=== PATIENT | female | born 1960 | race Caucasian/White ===

== ENCOUNTER 2023-04-29 06:56 | Outpatient (CLI) | payer MEDICARE, OTHER, SELFPAY ==
--- NOTE | 2023-04-29 08:00 | W.ANESCHARGE ---
Anesthesia Charges Start Date/Time Anesthesia Start Date: 04/29/23 Anesthesia Start Time: 08:07 Stop Date/Time Anesthesia Stop Date: 04/29/23 Anesthesia Stop Time: 08:44
--- NOTE | 2023-04-29 08:46 | W.ANESCHARGE ---
Anesthesia Charges Start Date/Time Anesthesia Start Date: 04/29/23 Anesthesia Start Time: 08:07 Stop Date/Time Anesthesia Stop Date: 04/29/23 Anesthesia Stop Time: 08:44
== END 2023-04-29 06:57 | disposition home or self-care (01) ==
LOC: OP CLINIC 07:04
PROVIDERS: PCP Nurse Practitioner Family; Visit Provider Internal Medicine Gastroenterology
DX: Z12.11 Encounter for screening for malignant neoplasm of colon (principal); K63.5 Polyp of colon
CPT/HCPCS: 00811; 45385; 88305; J2704